=== PATIENT | male | born 1990 | race Caucasian/White ===

== ENCOUNTER 2020-12-29 08:29 | Emergency (ER) | payer OTHER ==
[~2020-12-29 08:29] MED LIST: FLAGYL500 MG PO; ZITHROMAX1 GM PO
[2020-12-31 20:09] LABS: CHLAMYDIA TRACHOMATIS, NAA Negative (Negative); NEISSERIA GONORRHOEAE, NAA Negative (Negative)
== END 2020-12-29 10:47 | disposition home or self-care (01) ==
LOC: ER1 08:29
PROVIDERS: Physician Assistant
DX: R30.0 Dysuria (principal); F17.210 Nicotine dependence, cigarettes, uncomplicated
CPT/HCPCS: 81001; 99283

== ENCOUNTER 2021-08-16 07:10 | Emergency (ER) | payer OTHER ==
[2021-08-16] MEDS ORDERED: VIBRAMYCIN100 MG PO (08:41)
[2021-08-17 22:09] LABS: CHLAMYDIA TRACHOMATIS, NAA Negative (Negative); NEISSERIA GONORRHOEAE, NAA Positive (Negative)
== END 2021-08-16 08:59 | disposition home or self-care (01) ==
LOC: ER1 07:10
PROVIDERS: Physician Assistant
DX: R59.0 Localized enlarged lymph nodes (principal); Z88.5 Allergy status to narcotic agent; Z20.822 Contact with and (suspected) exposure to COVID-19
CPT/HCPCS: 81001; 87086; 96372; 99283; J0696; U0003